=== PATIENT | female | born 1990 | race African-American/Black ===

== ENCOUNTER 2016-12-29 09:05 | Emergency (ER) | payer MEDICAID ==
[~2016-12-29] VITALS: Ht 162.6 cm; Wt 127.0 kg
[2016-12-29 11:53] VITALS: BP 114/75
== END 2016-12-29 12:44 | disposition home or self-care (01) ==
LOC: ER 12:09
DX: N93.8 Other specified abnormal uterine and vaginal bleeding (principal); F17.200 Nicotine dependence, unspecified, uncomplicated
CPT/HCPCS: 81025; 99282; Z7610